=== PATIENT | male | born 1950 | race Caucasian/White ===

== ENCOUNTER 2018-05-30 03:27 | Emergency (ER) | payer BC ==
[2018-05-30] MEDS ORDERED: ASPIRIN 81 MG CHEWABLE TABLET PO ONE (03:39)
--- NOTE | 2018-05-30 03:45 | Emergency Department Record ---
History of Present Illness - General Chief Complaint: Shortness of breath Stated Complaint: MAYKEL Time Seen by Provider: 05/30/18 03:33 Source: Patient Mode of Arrival: EMS Limitations: No limitations - History of Present Illness Initial Comments: 67 yo male presents to ED for evaluation of difficulty in breathing that began approximately 3 hours ago. Patient reports "I just didn't feel right, I felt like I was gasping for air, but now I feel better". Patient does report recent fall with injury to the right chest wall 10 days ago, denies fevers, chills, or cough symptoms. Patient also reports history of CHF and SC x 3, takes effient daily. Patient denies lower extremity swelling/pain symptoms. MD Complaint: Shortness of breath Onset/Timin -: Hour(s) Severity: Mild Consistency: Now resolved Improves With: Nothing Worsens With: Nothing Known History Of: Congestive heart failure Associated Symptoms: Denies other symptoms Treatments Prior to Arrival: None - Related Data Home Oxygen Therapy: No Home Medications Medication Instructions Recorded Confirmed Last Taken Atorvastatin Calcium 40 mg PO QHS 05/30/18 05/30/18 Unknown Carvedilol [Coreg] 6.25 mg PO BID 05/30/18 05/30/18 Unknown Levothyroxine Sodium [Synthroid] 150 mcg PO DAILY 05/30/18 05/30/18 Unknown Lisinopril 2.5 mg PO DAILY 05/30/18 05/30/18 Unknown Prasugrel HCl [Effient] 10 mg PO DAILY 05/30/18 05/30/18 Unknown Allergies Allergy/AdvReac Type Severity Reaction Status Date / Time Sulfa (Sulfonamide Allergy HIVES Verified 05/30/18 03:29 Antibiotics) Review of Systems Constitutional: Denies: Chills, Fever, Malaise, Night sweats Eyes: Denies: Eye discharge, Eye pain ENT: Denies: Congestion, Ear pain, Epistaxis Respiratory: Reports: Dyspnea. Denies: Cough Cardiovascular: Denies: Chest pain, Dyspnea on exertion, Edema Endocrine: Denies: Fatigue, Heat or cold intolerance Gastrointestinal: Denies: Abdominal pain, Nausea, Vomiting Genitourinary: Denies: Incontinence, Retention Musculoskeletal: Denies: Arthralgia, Back pain, Gout, Joint swelling Skin: Denies: Bruising, Change in color Neurological: Denies: Abnormal gait, Confusion, Headache, Seizure Psychiatric: Denies: Anxiety Hematological/Lymphatic: Denies: Anemia, Blood Clots Physical Exam - General General Appearance: Alert, Oriented x3, Cooperative, No acute distress Limitations: No limitations - Head Head exam: Atraumatic, Normocephalic, Normal inspection Head exam detail: negative: Abrasion, Contusion, Harman's sign, General tenderness, Hematoma, Laceration - Eye Eye exam: Normal appearance. negative: Conjunctival injection, Periorbital swelling, Periorbital tenderness, Scleral icterus - ENT Ear exam: negative: Auricular hematoma, Auricular trauma Nasal Exam: negative: Active bleeding, Discharge, Dried blood, Foreign body Mouth exam: negative: Drooling, Laceration, Muffled voice, Tongue elevation - Neck Neck exam: Normal inspection. negative: Meningismus, Tenderness - Respiratory Respiratory exam: Normal lung sounds bilaterally, Other (Small area of ecchymosis to the right anterio-lateral chest wall just below the nipple). negative: Chest wall tenderness, Rales, Respiratory distress, Rhonchi, Stridor - Cardiovascular Cardiovascular Exam: Regular rate, Normal rhythm, Normal heart sounds - GI/Abdominal GI/Abdominal exam: Soft. negative: Rebound, Rigid, Tenderness - Rectal Rectal exam: Deferred - exam: Deferred - Extremities Extremities exam: Normal inspection. negative: Calf tenderness, Pedal edema, Tenderness - Back Back exam: Denies: CVA tenderness (R), CVA tenderness (L) - Neurological Neurological exam: Alert, Normal gait, Oriented X3 - Psychiatric Psychiatric exam: Normal affect, Normal mood - Skin Skin exam: Normal color. negative: Abrasion Type of lesion: negative: abrasion Course Vital Signs 05/30/18 03:31 Temperature 97.5 F L Pulse Rate [ 58 L Pulse Ox Probe] Respiratory 18 Rate Blood Pressure 112/78 [Left Arm] Pulse Ox 100 - Reevaluation(s) Reevaluation #1: 05/30/18 03:44 EKG: NSR 53 Normal axis, normal intervals No acute ST-T wave changes are present. Reevaluation #2: 05/30/18 04:48 Labs reviewed and are grossly unremarkable for an acute process. Reevaluation #3: 05/30/18 06:00 CTA Chest: No acute process Tiny pericardial effusion Small hiatal hernia Patient was updated on all results, will draw repeat Troponin at 3 hours. Patient reports that he continues to feel well, asymptomatic. Reevaluation #4: 05/30/18 07:16 Repeat Troponin has resulted as negative. Patient is resting comfortably and remains asymptomatic, appears stable for discharge at this time. Medical Decision Making - Lab Data Result diagrams: 05/30/18 03:40 05/30/18 03:40 Disposition Disposition: Discharge Clinical Impression: Dyspnea Qualifiers: Dyspnea type: unspecified Qualified Code(s): R06.00 - Dyspnea, unspecified Disposition: Home, Self-Care Condition: (2) Stable Instructions: Dyspnea (ED) Additional Instructions: Return to ED if your symptoms worsen or if you have any concerns. Follow-up with your family doctor in 3-5 days as directed. Forms: Patient Portal Access Time of Disposition: 07:17 Quality - Quality Measures Quality Measures: N/A - Blood Pressure Screening Does Patient Have Any of the Following: Active Dx of HTN Blood Pressure Classification: Pre-Hypertensive BP Reading Systolic Measurement: 133 Diastolic Measurement: 86 Screening for High Blood Pressure: Patient Exclusion, Hx of HTN [[id number]]
[2018-05-30 04:07] LABS: BASO % 0.7 % (0-6); EOS % 8.1 % (0-6); GRAN % 47.7 % (47-80); HEMATOCRIT 34.1 % (42.0-52.0); HEMOGLOBIN 11.1 gm/dl (14.0-18.0); LYMPH % 32.3 % (16-45); MEAN CELL VOLUME 90.2 fl (81-97); MEAN CORPUSCULAR HGB CONC 32.6 g/dl (32-36); MONO % 11.2 % (0-9); PLATELET COUNT 179 K/uL (130-400); RED BLOOD COUNT 3.78 M/uL (4.40-5.70); RED CELL DISTRIBUTION WIDTH 13.3 % (11.5-14.5); WHITE BLOOD COUNT W/O DIFF 5.7 K/uL (4.2-12.2)
[2018-05-30 04:17] LABS: MEAN CORPUSCULAR HEMOGLOBIN 29.3 pg (27-33)
[2018-05-30 04:19] LABS: BILIRUBIN,TOTAL < 0.20 mg/dL (0.2-1.0); BLOOD UREA NITROGEN 12 mg/dL (8-23); CREATININE 1.1 mg/dL (0.7-1.2); EST GLOMERULAR FILTRATION RATE > 60 mL/min
[2018-05-30 04:20] LABS: TOTAL PROTEIN 5.7 g/dL (6.6-8.7)
[2018-05-30 04:22] LABS: GLUCOSE,RANDOM 98 mg/dL (74-109)
[2018-05-30 04:24] LABS: ALT/SGPT 9 U/L (<41)
[2018-05-30 04:25] LABS: ALBUMIN 3.8 g/dL (4.0-5.0); ALKALINE PHOSPHATASE 38 U/L (40-129); AST/SGOT 14 U/L (10.0-50.0)
--- NOTE | 2018-05-31 08:41 | CT ANGIOGRAM REPORT ---
EXAM: CT ANGIOGRAM CHEST CTA w contrast HISTORY: SHORTNESS OF BREATH. TECHNIQUE: CTA chest performed using pulmonary embolus protocol following IV administration of 100 mL Omnipaque-350 contrast. Axial images were obtained with coronal and sagittal MIP reconstructions. COMPARISON: None. FINDINGS: The mediastinal vasculature enhances normally. No intraluminal filling defect to suggest pulmonary embolus. Ectasia of the thoracic aorta without aneurysm or dissection. Nonenlarged, nonspecific mediastinal and hilar lymph nodes. Cardiomegaly. Trace of pericardial fluid. Small hiatal hernia. Limited evaluation of the upper abdomen also shows a somewhat nodular appearance to the left adrenal gland. Osseous structures are grossly intact. Subjective wall thickening of the esophagus may in part relate to incompletely distention. This could further be assessed with esophagram or upper GI. Visualized airways are patent. No pneumothorax. Calcified granuloma in the lateral left upper lobe. Lungs are otherwise clear. IMPRESSION: 1. NEGATIVE FOR PULMONARY EMBOLUS, THORACIC AORTIC ANEURYSM, OR DISSECTION. 2. ECTASIA OF THE ASCENDING THORACIC AORTA. SMALL PERICARDIAL EFFUSION. 3. SUBJECTIVE WALL THICKENING OF THE ESOPHAGUS. SMALL HIATAL HERNIA. COULD CONSIDER FOLLOW-UP WITH UPPER GI OR ENDOSCOPY. 4. SLIGHT NODULARITY OF THE LEFT ADRENAL GLAND. 5. CALCIFIED GRANULOMA, LATERAL LEFT UPPER LOBE. JOB NUMBER: [id number] MTDD
== END 2018-05-30 07:24 | disposition home or self-care (01) ==
LOC: ER 03:27
DX: R06.00 Dyspnea, unspecified (principal); I31.3 Pericardial effusion (noninflammatory); R79.89 Other specified abnormal findings of blood chemistry; K44.9 Diaphragmatic hernia without obstruction or gangrene; R53.1 Weakness; I10 Essential (primary) hypertension; I50.9 Heart failure, unspecified; I25.2 Old myocardial infarction
CPT/HCPCS: 99284 ×2; 85025; 80053; 84484; 83880; 71275; 93005; 93010; Q9967